=== PATIENT | male | born 1980 | race Hispanic/Latino ===

== ENCOUNTER → 2020-11-04 | Outpatient (REF) | payer OTHER ==
[~2020-11-04] MED LIST: ASPE4PAD TOP; METH-1165 PO; NAPR-837 PO
[2020-11-04 10:43] LABS: SEMEN APPEARANCE OPAQUE (OPAQUE); SEMEN VISCOSITY LIQUID (LIQUID); SEMEN pH 8.5 (7.0-8.0); SPERM CONCENTRATION 58.5 M/ml (>=15.0); WBC CONCENTRATION >1 M/ml (<=1 M/ml)
== END ==
LOC: M LAB REF 10:15
PROVIDERS: ATTEND Obstetrics & Gynecology
DX: N46.8 Other male infertility (principal)

== ENCOUNTER 2022-08-09 06:34 | Day surgery (SDC) | payer OTHER ==
[~2022-08-09] VITALS: Ht 182.9 cm; Wt 106.6 kg
[~2022-08-09 06:34] MED LIST changes: +BEET PO; +CALCCHW4 PO; +CIDA500T2 PO; +GARL500C2 PO; +METF500T13 PO; +NS 1,000 ML IV ONE; +SILD100T PO; +VITMTA PO
[2022-08-09] MEDS ORDERED: fentaNYL 100 MCG/2 ML INJECTION As Ordered ONE (07:48)
[2022-08-09] MEDS ORDERED: propofoL 200 MG/20 ML VIAL As Ordered ONE (07:48)
[2022-08-09] MEDS ORDERED: LIDOCAINE 2% MDV 20ML VIAL As Ordered ONE (07:48)
[2022-08-09 07:49] VITALS: TEMP 97
[2022-08-09 08:02] VITALS: BP 130/76; O2SAT 94
== END 2022-08-09 08:14 | disposition home or self-care (01) ==
LOC: M OPP 06:34
PROVIDERS: ATTEND Internal Medicine Gastroenterology
DX: Z12.11 Encounter for screening for malignant neoplasm of colon (principal); K21.9 Gastro-esophageal reflux disease without esophagitis; G47.30 Sleep apnea, unspecified; Z87.891 Personal history of nicotine dependence; Z79.899 Other long term (current) drug therapy
CPT/HCPCS: 45378; J3010

== ENCOUNTER → 2023-11-10 | Outpatient (REF) ==
[~2023-11-10] MED LIST changes: -GARL500C2 PO; +GARL500C6 PO; -NS 1,000 ML IV ONE
== END ==
LOC: M PLAIMG 11:36
PROVIDERS: ATTEND Family Medicine
DX: M25.50 Pain in unspecified joint (principal)